=== PATIENT | female | born 1975 | race Caucasian/White ===

== ENCOUNTER 2017-07-29 00:10 | Inpatient (IN) | payer OTHER ==
[2017-07-29] VITALS (8 sets, daily range): BP systolic 126–148; BP diastolic 79–95
[~2017-07-29] VITALS: Ht 170.2 cm; Wt 100.3 kg
[2017-07-29] MEDS ORDERED: FLUO10CA7 PO (00:57)
[2017-07-29 01:00] LABS: BASOPHILS # (AUTO) 0.05 x10^3/uL (0-0.1); BASOPHILS % (AUTO) 1 % (0-1); EOSINOPHILS # (AUTO) 0.08 x10^3/uL (0-0.4); EOSINOPHILS % (AUTO) 1 % (1-7); LYMPHOCYTES # (AUTO) 2.21 x10^3/uL (1-3.4); LYMPHOCYTES % (AUTO) 22 % (22-44); MD NO; MEAN CORPUSCULAR HEMOGLOBIN 27.6 pg (27.0-34.8); MEAN CORPUSCULAR HGB CONC 33.6 g/dL (32.4-35.8); MEAN CORPUSCULAR VOLUME 82.2 fL (80-100); MEAN PLATELET VOLUME 6.9 fL (7.4-10.4); MONOCYTES # (AUTO) 0.41 x10^3/uL (0.2-0.8); MONOCYTES % (AUTO) 4 % (2-9); NEUTROPHILS % (AUTO) 72 % (42-75); PLATELET COUNT 375 x10^3/uL (130-400); RED BLOOD COUNT 4.85 x10^6/uL (3.82-5.3); RED CELL DISTRIBUTION WIDTH 15.1 % (9.6-15.2)
[2017-07-29 01:11] LABS: ALBUMIN 3.6 g/dL (3.4-5.0); ANION GAP 11 mmol/L (5-15); CALCIUM 8.6 mg/dL (8.5-10.1); CHLORIDE 108 mmol/L (98-107); CREATININE 0.78 mg/dL (0.55-1.02)
[2017-07-29 01:14] LABS: TROPONIN I < 0.015 ng/mL (0.000-0.045)
[2017-07-29] MEDS ORDERED: ONDANSETRON 2MG/ML, 2ML IVPush PRN ×2 (02:30→04:00)
[2017-07-29] MEDS ORDERED: ACETAMINOPHEN 325 MG TABLET PO PRN (04:00)
[2017-07-29] MEDS ORDERED: hydrALAzine 20 MG/ML, 1ML IV PRN (04:00)
[2017-07-29] MEDS ORDERED: NITROGLYCERIN 0.4 MG BOTTLE (25 TABS) SL PRN (04:00)
[2017-07-29] MEDS ORDERED: DOCUSATE 100 MG CAPSULE PO PRN (04:00)
[2017-07-29] MEDS ORDERED: ONDANSETRON ODT 4 MG PO PRN (04:00)
[2017-07-29] MEDS ORDERED: BISACODYL 10 MG SUPP PR PRN (04:00)
[2017-07-29 04:14] LABS: BASOPHILS # (AUTO) 0.04 x10^3/uL (0-0.1); BASOPHILS % (AUTO) 0 % (0-1); EOSINOPHILS # (AUTO) 0.04 x10^3/uL (0-0.4); EOSINOPHILS % (AUTO) 0 % (1-7); LYMPHOCYTES # (AUTO) 1.97 x10^3/uL (1-3.4); LYMPHOCYTES % (AUTO) 17 % (22-44); MD NO; MEAN CORPUSCULAR HEMOGLOBIN 27.4 pg (27.0-34.8); MEAN PLATELET VOLUME 7.3 fL (7.4-10.4); MONOCYTES # (AUTO) 0.39 x10^3/uL (0.2-0.8); MONOCYTES % (AUTO) 3 % (2-9); NEUTROPHILS # (AUTO) 8.91 x10^3/uL (1.8-6.8); NEUTROPHILS % (AUTO) 79 % (42-75); PLATELET COUNT 357 x10^3/uL (130-400); RED BLOOD COUNT 4.71 x10^6/uL (3.82-5.3); RED CELL DISTRIBUTION WIDTH 15.2 % (9.6-15.2)
[2017-07-29 04:30] LABS: HEMOGLOBIN A1C 5.5 % (4.2-6.3)
[2017-07-29 04:33] LABS: ALANINE AMINOTRANSFERASE 38 U/L (12-78); ALBUMIN 3.5 g/dL (3.4-5.0); ANION GAP 6 mmol/L (5-15); CALCIUM 8.5 mg/dL (8.5-10.1); CHLORIDE 107 mmol/L (98-107)
[2017-07-29 04:36] LABS: ALKALINE PHOSPHATASE 80 U/L (45-117); BILIRUBIN,TOTAL 0.4 mg/dL (0.2-1.0); CHOL/HDL RATIO 5.8; CHOLESTEROL, TOTAL 197 mg/dL (140-239); HDL CHOL % 17 % (28-40); HDL CHOLESTEROL (DIRECT) 34 mg/dL (40-60); LDL CHOLESTEROL,CALCULATED 135 mg/dL (54-169); TOTAL PROTEIN 7.2 g/dL (6.4-8.2); TRIGLYCERIDES 141 mg/dL (50-200); TROPONIN I < 0.015 ng/mL (0.000-0.045); VLDL CHOLESTEROL 28 mg/dL (0-25)
[2017-07-29] MEDS ORDERED: ASPIRIN 325 MG TABLET EC ONE (04:51)
[2017-07-29] MEDS: SODIUM CHLORIDE 0.9% 1,000 ML IV SCH ×2 (05:19→13:00)
[2017-07-29] MEDS: ENOXAPARIN 30 MG/0.3 ML SQ SCH ×2 (05:19→18:22)
[2017-07-29] MEDS: ASPIRIN 325 MG TABLET EC PO SCH (05:20)
[2017-07-29] MEDS ORDERED: CARVEDILOL 3.125 MG TABLET PO SCH (06:00)
[2017-07-29 06:57] LABS: MICROSCOPIC NOT IND
[2017-07-29 07:07] LABS: CULTURE INDICATED? NO
[2017-07-29] MEDS: SENNA/DOCUSATE TABLET PO SCH (09:00)
[2017-07-29] MEDS ORDERED: AMLODIPINE 5 MG TABLET PO SCH (09:00)
[2017-07-29 09:54] LABS: TROPONIN I < 0.015 ng/mL (0.000-0.045)
[2017-07-29] MEDS ORDERED: REGADENOSON 0.4 MG/5 ML SYRINGE ONE (11:06)
[2017-07-29] MEDS: LISINOPRIL 10 MG TABLET PO SCH (12:59)
[2017-07-29] MEDS: FLUOXETINE 10 MG CAP PO SCH (18:22)
[2017-07-30] VITALS (8 sets, daily range): BP systolic 128–162; BP diastolic 87–100
[2017-07-30] MEDS: ENOXAPARIN 30 MG/0.3 ML SQ SCH (05:08)
[2017-07-30] MEDS: ASPIRIN 325 MG TABLET EC PO SCH (05:08)
[2017-07-30] MEDS: LISINOPRIL 10 MG TABLET PO SCH (08:07)
[2017-07-30] MEDS: FLUOXETINE 10 MG CAP PO SCH (08:07)
[2017-07-30] MEDS: SENNA/DOCUSATE TABLET PO SCH (09:00)
[2017-07-30] MEDS ORDERED: FLUOXETINE 10 MG CAP PO SCH (09:00)
[2017-07-30] MEDS ORDERED: LISI-167 PO (10:29)
== END 2017-07-30 12:00 | disposition home or self-care (01) | DRG 305 ==
LOC: ED 00:52 → EDIP 02:04 → 4EST 10:46
PROVIDERS: ADMIT Surgery; ATTEND Surgery
DX: I16.0 Hypertensive urgency (principal); F32.9 Major depressive disorder, single episode, unspecified; F41.0 Panic disorder [episodic paroxysmal anxiety]; F41.1 Generalized anxiety disorder; I10 Essential (primary) hypertension; Z90.710 Acquired absence of both cervix and uterus
CPT/HCPCS: 36415; 71010; 78452; 80048; 80053; 80061; 81003; 82040; 83036; 83735; 84100; 84443; 84484; 85025; 93005; 93017; 99285; J1650; J2785; A9502; C9898; J7030

== ENCOUNTER 2019-06-27 07:04 | Outpatient (CLI) | payer OTHER ==
[~2019-06-27 07:04] MED LIST: FLUO10CA7 PO; LISI-167 PO
== END 2019-06-27 23:59 | disposition home or self-care (01) ==
LOC: CFH 07:04
PROVIDERS: ATTEND Family Medicine
DX: Z12.31 Encounter for screening mammogram for malignant neoplasm of breast (principal); K76.0 Fatty (change of) liver, not elsewhere classified; Z87.891 Personal history of nicotine dependence
CPT/HCPCS: 76705; 77063; 77067